=== PATIENT | male | born 1935 | race Caucasian/White ===

== ENCOUNTER 2019-11-18 11:45 | Emergency (ER) | payer MEDICARE, MEDICAID ==
[~2019-11-18] VITALS: Ht 157.5 cm; Wt 60.0 kg
[2019-11-18 16:49] VITALS: BP 141/52
== END 2019-11-18 17:15 | disposition home or self-care (01) ==
LOC: ER 11:45
DX: K40.90 Unilateral inguinal hernia, without obstruction or gangrene, not specified as recurrent (principal); I25.2 Old myocardial infarction; Z98.890 Other specified postprocedural states
CPT/HCPCS: 99283